=== PATIENT | female | born 1975 | race Caucasian/White ===

== ENCOUNTER 2021-04-08 12:12 | Inpatient (IN) | payer OTHER ==
[2021-04-08 13:37] VITALS: BMI 17.9
[2021-04-08] MEDS ORDERED: METHOCARBAMOL 500 MG TABLET PO PRN (14:36)
[2021-04-08] MEDS ORDERED: ONDANSETRON *ODT* 4 MG TABLET SL PRN (14:36)
[2021-04-08] MEDS ORDERED: LORazepam 1 MG TABLET PO PRN (14:36)
[2021-04-08] MEDS ORDERED: BISMUTH SUBSALICYLATE 524 MG/30 ML PO PRN (14:36)
[2021-04-08] MEDS ORDERED: ACETAMINOPHEN 325 MG TABLET (FP) PO PRN ×2 (14:36)
[2021-04-08] MEDS ORDERED: MENTHOL/PHENOL 1 EACH UD MM PRN (14:36)
[2021-04-08] MEDS ORDERED: NICOTINE 10 MG CARTRIDGE (INHALER) IH PRN (14:36)
[2021-04-08] MEDS ORDERED: MAGNESIUM CITRATE 300 ML BOTTLE PO PRN (14:36)
[2021-04-08] MEDS ORDERED: IBUPROFEN 400 MG TABLET (FP) PO PRN (14:36)
[2021-04-08] MEDS ORDERED: HYDROCORTISONE 1% TOPICAL CREAM 30 GM TUBE TP PRN (14:39)
[2021-04-08] MEDS: COLLOIDAL OATMEAL 1 BAR EACH TP PRN (21:28)
[2021-04-08] MEDS: LORazepam 2 MG TABLET PO SCH (21:28)
[2021-04-08] MEDS: MELATONIN 5 MG TABLETS PO SCH (21:29)
[2021-04-08] MEDS: THIAMINE HCL 100 MG TABLET (FP) PO SCH (21:29)
[2021-04-08] MEDS: hydrOXYzine PAMOATE 25 MG CAPSULE (FP) PO SCH ×2 (21:32→22:46)
[2021-04-08] MEDS: NICOTINE 21 MG/24 HOURS TOPICAL PATCH TD SCH (21:33)
[2021-04-09] MEDS: LORazepam 2 MG TABLET PO SCH ×5 (01:04→22:19)
[2021-04-09] MEDS: hydrOXYzine PAMOATE 25 MG CAPSULE (FP) PO SCH ×5 (07:04→22:19)
[2021-04-09] MEDS: MAGNESIUM HYDROX 2400MG/30ML ORAL SUSPENSION 30 ML CUP PO PRN (07:07)
[2021-04-09] MEDS: COLLOIDAL OATMEAL 1 BAR EACH TP PRN (07:08)
[2021-04-09] MEDS: PRENATAL VITAMINS W/ FOLIC ACID TABLET (FP) PO SCH (10:23)
[2021-04-09] MEDS: NICOTINE 21 MG/24 HOURS TOPICAL PATCH TD SCH (10:24)
[2021-04-09] MEDS ORDERED: cloNIDine HCL 0.1 MG TABLET PO PRN (16:47)
[2021-04-09] MEDS: MAG HYDROX/AL HYDROX/SIMETH 30 ML UNIT-DOSE CUP PO PRN (18:21)
[2021-04-09] MEDS: MELATONIN 5 MG TABLETS PO SCH (22:18)
[2021-04-09] MEDS: THIAMINE HCL 100 MG TABLET (FP) PO SCH (22:19)
[2021-04-10] LABS: EPI CELLS >36 /uL (0-25.1); HYALINE CASTS 1 /uL (0-3.1); URINE APPEARANCE CLEAR; URINE BACTERIA 677 /uL (0-1359); URINE BILIRUBIN NEGATIVE (NEGATIVE); URINE COLOR YELLOW; URINE GLUCOSE (UA) NEGATIVE (NEGATIVE); URINE KETONE NEGATIVE (NEGATIVE); URINE LEUK ESTERASE 1+ (NEGATIVE); URINE NITRITE NEGATIVE (NEGATIVE); URINE PROTEIN NEGATIVE (NEGATIVE); URINE UROBILINOGEN 0.2 mg/dL (0.2-1.0); URINE WBC 40 /uL (0-25.8)
[2021-04-10] MEDS: LORazepam 1 MG TABLET PO SCH ×4 (06:25→22:08)
[2021-04-10] MEDS: hydrOXYzine PAMOATE 25 MG CAPSULE (FP) PO SCH ×5 (06:26→22:08)
[2021-04-10] MEDS: MAGNESIUM HYDROX 2400MG/30ML ORAL SUSPENSION 30 ML CUP PO PRN ×2 (06:27→17:40)
[2021-04-10] MEDS: NICOTINE 21 MG/24 HOURS TOPICAL PATCH TD SCH (10:11)
[2021-04-10] MEDS: PRENATAL VITAMINS W/ FOLIC ACID TABLET (FP) PO SCH (10:12)
[2021-04-10 10:43] LABS: HEMATOCRIT 29.5 % (32.4-45.2); HEMOGLOBIN 8.8 GM/dL (10.7-15.3); MCHC 29.7 g/dl (32.0-36.0); MEAN PLT VOLUME 7.3 fl (7.5-11.1); PLATELET COUNT 633 10^3/uL (134-434); RBC 4.53 M/mm3 (3.60-5.2); RDW 20.8 % (11.6-15.6)
[2021-04-10 10:52] LABS: ALBUMIN 3.2 g/dl (3.4-5.0); BLOOD UREA NITROGEN 15.9 mg/dL (7-18); CALCIUM 8.5 mg/dL (8.5-10.1)
[2021-04-10 10:55] LABS: MCH 19.3 pg (25.7-33.7)
[2021-04-10 10:56] LABS: CREATININE 0.6 mg/dL (0.55-1.3)
[2021-04-10 10:57] LABS: TOT PROT 7.2 g/dl (6.4-8.2)
[2021-04-10 10:58] LABS: BILIRUBIN,TOTAL 0.4 mg/dL (0.2-1)
[2021-04-10] MEDS: NICOTINE POLACRILEX 2 MG GUM BUC PRN (18:45)
[2021-04-10] MEDS: THIAMINE HCL 100 MG TABLET (FP) PO SCH (22:08)
[2021-04-10] MEDS: MELATONIN 5 MG TABLETS PO SCH (22:08)
[2021-04-11] MEDS ORDERED: LORazepam 0.5 MG TABLET PO PRN
[2021-04-11] MEDS: LORazepam 0.5 MG TABLET PO SCH ×3 (06:40→17:32)
[2021-04-11] MEDS: hydrOXYzine PAMOATE 25 MG CAPSULE (FP) PO SCH ×4 (06:41→17:32)
[2021-04-11] MEDS: PRENATAL VITAMINS W/ FOLIC ACID TABLET (FP) PO SCH (10:10)
[2021-04-11] MEDS: NICOTINE 21 MG/24 HOURS TOPICAL PATCH TD SCH ×2 (10:13→10:54)
[2021-04-11] MEDS: NICOTINE POLACRILEX 2 MG GUM BUC PRN (10:13)
[2021-04-11] MEDS ORDERED: BISACODYL 5 MG TABLET.DR (FP) PO PRN (10:26)
[2021-04-11] MEDS ORDERED: traZODone HCL 50 MG TABLET (FP) PO PRN (10:30)
[2021-04-11 17:30] VITALS: BP 120/75; PULSE 94; TEMP 97.6
[2021-04-11] MEDS: MAG HYDROX/AL HYDROX/SIMETH 30 ML UNIT-DOSE CUP PO PRN (17:34)
[2021-04-12] MEDS ORDERED: LORazepam 0.5 MG TABLET PO ONE (05:00)
== END 2021-04-11 19:44 | disposition other institution (70) | DRG 897 ==
LOC: YASAS 12:12 → Y3N 16:53
PROVIDERS: ADMIT Allergy & Immunology; ATTEND Allergy & Immunology
PROC: HZ2ZZZZ Detoxification Services for Substance Abuse Treatment (ICD-10-PCS; principal; 2021-04-08)
DX: F10.230 Alcohol dependence with withdrawal, uncomplicated (principal); F14.20 Cocaine dependence, uncomplicated; F16.20 Hallucinogen dependence, uncomplicated; F12.20 Cannabis dependence, uncomplicated; F17.210 Nicotine dependence, cigarettes, uncomplicated; F31.9 Bipolar disorder, unspecified; F20.9 Schizophrenia, unspecified; F19.24 Other psychoactive substance dependence with psychoactive substance-induced mood disorder; F41.9 Anxiety disorder, unspecified; D64.9 Anemia, unspecified; K59.00 Constipation, unspecified; R03.0 Elevated blood-pressure reading, without diagnosis of hypertension; L40.9 Psoriasis, unspecified; M06.9 Rheumatoid arthritis, unspecified; S09.92XA Unspecified injury of nose, initial encounter; W22.8XXA Striking against or struck by other objects, initial encounter; Y92.89 Other specified places as the place of occurrence of the external cause; Z98.84 Bariatric surgery status; Z59.0 Homelessness
CPT/HCPCS: 36415; 80053; 81003; 81025; 85027; 86780; 93005; 93010; C9803; U0003; U0005

== ENCOUNTER 2021-04-11 19:44 | Inpatient (IN) | payer OTHER ==
[2021-04-11] MEDS ORDERED: P-EPHED 60MG/TRIPROLIDI 2.5MG TABLET PO PRN (20:33)
[2021-04-11] MEDS ORDERED: ACETAMINOPHEN 325 MG TABLET (FP) PO PRN (20:33)
[2021-04-11] MEDS ORDERED: guaiFENesin 200 MG/10 ML 10 ML UNIT-DOSE CUPS PO PRN (20:33)
[2021-04-11] MEDS ORDERED: MAGNESIUM CITRATE 300 ML BOTTLE PO PRN (20:33)
[2021-04-11] MEDS ORDERED: LOPERAMIDE HCL 2 MG CAPSULE PO PRN (20:33)
[2021-04-11] MEDS ORDERED: MAG HYDROX/AL HYDROX/SIMETH 30 ML UNIT-DOSE CUP PO PRN (20:33)
[2021-04-11] MEDS ORDERED: MENTHOL/PHENOL 1 EACH UD MM PRN (20:33)
[2021-04-11] MEDS: THIAMINE HCL 100 MG TABLET (FP) PO SCH (21:55)
[2021-04-11] MEDS ORDERED: MELATONIN 5 MG TABLETS PO SCH (22:00)
[2021-04-12] MEDS: NICOTINE 10 MG CARTRIDGE (INHALER) IH SCH (10:30)
[2021-04-12] MEDS: NICOTINE 14 MG/24 HOURS TOPICAL PATCH TD SCH (10:30)
[2021-04-12] MEDS: hydrOXYzine PAMOATE 50 MG CAPSULE (FP) PO PRN ×2 (10:30→20:04)
[2021-04-12] MEDS: PRENATAL VITAMINS W/ FOLIC ACID TABLET (FP) PO SCH (10:30)
[2021-04-12] MEDS: THIAMINE HCL 100 MG TABLET (FP) PO SCH (21:49)
[2021-04-12] MEDS: MAGNESIUM HYDROX 2400MG/30ML ORAL SUSPENSION 30 ML CUP PO PRN (21:50)
[2021-04-12] MEDS: SUVOREXANT 10 MG TABLET PO PRN (21:51)
[2021-04-13] MEDS: IBUPROFEN 400 MG TABLET (FP) PO PRN ×2 (06:16→18:04)
[2021-04-13] MEDS: hydrOXYzine PAMOATE 50 MG CAPSULE (FP) PO PRN ×4 (06:17→18:04)
[2021-04-13] MEDS: PRENATAL VITAMINS W/ FOLIC ACID TABLET (FP) PO SCH (10:37)
[2021-04-13] MEDS: NICOTINE 14 MG/24 HOURS TOPICAL PATCH TD SCH (10:37)
[2021-04-13] MEDS: NICOTINE 10 MG CARTRIDGE (INHALER) IH SCH (10:38)
[2021-04-13] MEDS: MAGNESIUM HYDROX 2400MG/30ML ORAL SUSPENSION 30 ML CUP PO PRN (16:13)
[2021-04-13] MEDS: NICOTINE POLACRILEX 2 MG GUM BUC PRN (16:13)
[2021-04-13] MEDS: THIAMINE HCL 100 MG TABLET (FP) PO SCH (21:43)
[2021-04-13] MEDS: SUVOREXANT 10 MG TABLET PO PRN (21:45)
[2021-04-14] MEDS: hydrOXYzine PAMOATE 50 MG CAPSULE (FP) PO PRN ×3 (06:09→19:04)
[2021-04-14] MEDS: IBUPROFEN 400 MG TABLET (FP) PO PRN (06:09)
[2021-04-14] MEDS: NICOTINE 10 MG CARTRIDGE (INHALER) IH SCH (10:05)
[2021-04-14] MEDS: NICOTINE 14 MG/24 HOURS TOPICAL PATCH TD SCH (10:05)
[2021-04-14] MEDS: PRENATAL VITAMINS W/ FOLIC ACID TABLET (FP) PO SCH (10:05)
[2021-04-14] MEDS: NICOTINE POLACRILEX 2 MG GUM BUC PRN ×2 (10:06→19:04)
[2021-04-14] MEDS: THIAMINE HCL 100 MG TABLET (FP) PO SCH (21:20)
[2021-04-14] MEDS: SUVOREXANT 10 MG TABLET PO PRN (21:20)
[2021-04-15] MEDS: hydrOXYzine PAMOATE 50 MG CAPSULE (FP) PO PRN ×3 (00:57→10:26)
[2021-04-15] MEDS: NICOTINE POLACRILEX 2 MG GUM BUC PRN ×2 (06:08→10:29)
[2021-04-15] MEDS: IBUPROFEN 400 MG TABLET (FP) PO PRN (06:08)
[2021-04-15 07:06] VITALS: BP 126/83; PULSE 80; TEMP 97.8
[2021-04-15] MEDS: NICOTINE 10 MG CARTRIDGE (INHALER) IH SCH (10:26)
[2021-04-15] MEDS: NICOTINE 14 MG/24 HOURS TOPICAL PATCH TD SCH (10:26)
[2021-04-15] MEDS: PRENATAL VITAMINS W/ FOLIC ACID TABLET (FP) PO SCH (10:26)
[2021-04-15] MEDS ORDERED: LIDOCAINE 5% TOPICAL PATCH TP SCH (12:45)
[2021-04-15] MEDS ORDERED: LIDOCAINE PATCH REMOVAL MC SCH (22:00)
== END 2021-04-15 14:25 | disposition home or self-care (01) | DRG 895 ==
LOC: YASAS 19:44 → Y5N 19:46
PROVIDERS: ADMIT Allergy & Immunology; ATTEND Allergy & Immunology
PROC: HZ42ZZZ Group Counseling for Substance Abuse Treatment, Cognitive-Behavioral (ICD-10-PCS; principal; 2021-04-11)
DX: F10.20 Alcohol dependence, uncomplicated (principal); F14.20 Cocaine dependence, uncomplicated; F16.20 Hallucinogen dependence, uncomplicated; F19.280 Other psychoactive substance dependence with psychoactive substance-induced anxiety disorder; F19.282 Other psychoactive substance dependence with psychoactive substance-induced sleep disorder; F17.210 Nicotine dependence, cigarettes, uncomplicated; F31.9 Bipolar disorder, unspecified; L40.9 Psoriasis, unspecified; M06.9 Rheumatoid arthritis, unspecified; M54.50 Low back pain, unspecified; G89.29 Other chronic pain

== ENCOUNTER 2022-04-08 09:20 | Inpatient (IN) | payer OTHER ==
[2022-04-08 09:58] VITALS: BMI 18.8
[2022-04-08] MEDS ORDERED: LORazepam 1 MG TABLET PO PRN (10:43)
[2022-04-08] MEDS ORDERED: ACETAMINOPHEN 325 MG TABLET (FP) PO PRN ×2 (10:43)
[2022-04-08] MEDS ORDERED: IBUPROFEN 600 MG TABLET (FP) PO PRN (10:43)
[2022-04-08] MEDS ORDERED: IBUPROFEN 400 MG TABLET (FP) PO PRN (10:43)
[2022-04-08] MEDS ORDERED: BISMUTH SUBSALICYLATE 524 MG/30 ML PO PRN (10:43)
[2022-04-08] MEDS ORDERED: LOPERAMIDE HCL 2 MG CAPSULE PO PRN (10:43)
[2022-04-08] MEDS ORDERED: MAGNESIUM CITRATE 300 ML BOTTLE PO PRN (10:43)
[2022-04-08] MEDS ORDERED: ONDANSETRON *ODT* 4 MG TABLET SL PRN (10:43)
[2022-04-08] MEDS ORDERED: BENZOCAINE/MENTHOL (CHLORASEPTIC ) LOZENGE MM PRN (10:43)
[2022-04-08] MEDS ORDERED: DICYCLOMINE HCL 10 MG CAPSULE PO PRN (10:43)
[2022-04-08] MEDS ORDERED: NALOXONE HCL (KLOXXADO) 8 MG SPRAY NS PRN (10:43)
[2022-04-08] MEDS ORDERED: MAG HYDROX/AL HYDROX/SIMETH 30 ML UNIT-DOSE CUP PO PRN (10:43)
[2022-04-08] MEDS ORDERED: MAGNESIUM HYDROX 2400MG/30ML ORAL SUSPENSION 30 ML CUP PO PRN (10:43)
[2022-04-08] MEDS: METHOCARBAMOL 500 MG TABLET PO PRN ×2 (11:45→18:11)
[2022-04-08] MEDS: LORazepam 2 MG TABLET PO SCH ×3 (11:46→22:52)
[2022-04-08] MEDS: hydrOXYzine PAMOATE 25 MG CAPSULE (FP) PO SCH ×3 (14:06→22:55)
[2022-04-08] MEDS: FLUOCINONIDE 0.05% CREAM (60 GM TUBE) TP SCH ×2 (14:40→22:55)
[2022-04-08] MEDS: NICOTINE 10 MG CARTRIDGE (INHALER) IH PRN (18:11)
[2022-04-08] MEDS: MELATONIN 5 MG TABLETS PO SCH (22:52)
[2022-04-08] MEDS: THIAMINE HCL 100 MG TABLET (FP) PO SCH (22:52)
[2022-04-09] MEDS: LORazepam 2 MG TABLET PO SCH ×4 (06:17→23:28)
[2022-04-09] MEDS: hydrOXYzine PAMOATE 25 MG CAPSULE (FP) PO SCH ×5 (06:17→23:27)
[2022-04-09 09:30] VITALS: RESP 18
[2022-04-09] MEDS ORDERED: PRENATAL VITAMINS W/ FOLIC ACID TABLET (FP) PO SCH (10:00)
[2022-04-09] MEDS: FLUOCINONIDE 0.05% CREAM (60 GM TUBE) TP SCH ×2 (10:37→23:27)
[2022-04-09] MEDS: NICOTINE 10 MG CARTRIDGE (INHALER) IH PRN (10:39)
[2022-04-09 11:16] LABS: HEMATOCRIT 22.7 % (32.4-45.2); MCHC 28.8 g/dl (32.0-36.0); MEAN PLT VOLUME 7.4 fl (7.5-11.1); PLATELET COUNT 467 10^3/uL (134-434); RBC 3.78 M/mm3 (3.60-5.2); RDW 20.2 % (11.6-15.6); WHITE BLOOD COUNT 7.4 K/mm3 (4.0-10.0)
[2022-04-09 11:19] LABS: CALCIUM 8.1 mg/dL (8.5-10.1)
[2022-04-09 11:20] LABS: ALBUMIN 2.8 g/dl (3.4-5.0); BLOOD UREA NITROGEN 11.9 mg/dL (7-18)
[2022-04-09 11:23] LABS: CREATININE 0.5 mg/dL (0.55-1.3); MCH 17.3 pg (25.7-33.7)
[2022-04-09 11:24] LABS: BILIRUBIN,TOTAL 0.4 mg/dL (0.2-1)
[2022-04-09 11:25] LABS: HEMOGLOBIN 6.5 GM/dL (10.7-15.3); TOT PROT 6.4 g/dl (6.4-8.2)
[2022-04-09 12:19] LABS: HIV INTERPRETATION NEGATIVE (NEGATIVE)
[2022-04-09 13:50] VITALS: BP 129/82; PULSE 92; TEMP 96.9
[2022-04-09] MEDS: THIAMINE HCL 100 MG TABLET (FP) PO SCH (23:27)
[2022-04-09] MEDS: MELATONIN 5 MG TABLETS PO SCH (23:27)
[2022-04-10] MEDS ORDERED: LORazepam 1 MG TABLET PO SCH (05:00)
[2022-04-11] MEDS ORDERED: LORazepam 0.5 MG TABLET PO PRN
[2022-04-11] MEDS ORDERED: LORazepam 0.5 MG TABLET PO SCH (05:00)
[2022-04-12] MEDS ORDERED: LORazepam 0.5 MG TABLET PO ONE (05:00)
== END 2022-04-09 16:00 | disposition short-term general hospital (02) | DRG 897 ==
LOC: YASAS 09:20 → Y6N 10:53
PROVIDERS: ADMIT Allergy & Immunology; ATTEND Surgery
PROC: HZ2ZZZZ Detoxification Services for Substance Abuse Treatment (ICD-10-PCS; principal; 2022-04-08)
DX: F10.230 Alcohol dependence with withdrawal, uncomplicated (principal); F14.20 Cocaine dependence, uncomplicated; Z68.1 Body mass index [BMI] 19.9 or less, adult; F12.20 Cannabis dependence, uncomplicated; F17.210 Nicotine dependence, cigarettes, uncomplicated; F31.9 Bipolar disorder, unspecified; F20.9 Schizophrenia, unspecified; D64.9 Anemia, unspecified; R63.4 Abnormal weight loss; Z59.00 Homelessness unspecified; Z28.310 Unvaccinated for COVID-19; N28.9 Disorder of kidney and ureter, unspecified
CPT/HCPCS: 36415; 80053; 81025; 85027; 86780; 87389; 87811; C9803-CS; U0003; U0005

== ENCOUNTER 2022-04-09 12:52 | Observation (INO) | payer OTHER ==
[2022-04-09 13:02] VITALS: BMI 18.8
[2022-04-09 15:11] LABS: PROTHROMBIN TIME (PATIENT) 11.5 SEC (9.7-13.0)
[2022-04-09 15:13] LABS: ACTIVATED PTT 30.2 SECONDS (25.2-36.5)
[2022-04-09] MEDS ORDERED: ACETAMINOPHEN 1000 MG/100 ML BAG IVPB ONE (15:28)
[2022-04-09] MEDS ORDERED: LORazepam 2 MG/ML SDV VIAL IVPUSH PRN (16:11)
[2022-04-09] MEDS ORDERED: MAG HYDROX/AL HYDROX/SIMETH 30 ML UNIT-DOSE CUP PO PRN (16:11)
[2022-04-09] MEDS ORDERED: ACETAMINOPHEN 1000 MG/100 ML BAG IVPB PRN ×2 (16:11→16:15)
[2022-04-09] MEDS ORDERED: PANTOPRAZOLE SODIUM 40 MG VIAL IVPUSH SCH (16:15)
[2022-04-09] MEDS ORDERED: ACETAMINOPHEN INJECTION 100 ML IVPB ONE (16:19)
[2022-04-09] MEDS ORDERED: PANTOPRAZOLE SODIUM 40 MG/100 ML BAG IVPB ONE (16:58)
[2022-04-10 07:30] LABS: CALCIUM 8.5 mg/dL (8.5-10.1)
[2022-04-10 07:31] LABS: BLOOD UREA NITROGEN 15.1 mg/dL (7-18)
[2022-04-10 07:34] LABS: CREATININE 0.6 mg/dL (0.55-1.3); PHOSPHOROUS 3.8 mg/dL (2.5-4.9)
[2022-04-10 07:36] LABS: HEMATOCRIT 26.3 % (32.4-45.2); HEMOGLOBIN 7.9 GM/dL (10.7-15.3); MEAN CELL VOLUME 61.3 fl (80-96); MEAN PLT VOLUME 8.3 fl (7.5-11.1); PLATELET COUNT 481 10^3/uL (134-434); WHITE BLOOD COUNT 9.4 K/mm3 (4.0-10.0)
[2022-04-10 08:05] LABS: MCH 18.4 pg (25.7-33.7)
[2022-04-10] MEDS ORDERED: CYANOCOBALAMIN (VITAMIN B-12) 1000 MCG/1 ML VIAL IM ONE (08:58)
[2022-04-10 09:38] LABS: ANISOCYTOSIS 3+; MACROCYTOSIS 0; OVALOCYTE 1+
[2022-04-10] MEDS ORDERED: PANTOPRAZOLE SODIUM 40 MG VIAL IVPUSH SCH (10:00)
[2022-04-10] MEDS ORDERED: FERROUS SO4 325 MG TABLET (FP) ONE (10:05)
[2022-04-10] MEDS: DEXTROSE 5%-0.45% SALINE 1,000 ML IV SCH (10:05)
[2022-04-10] MEDS ORDERED: NICOTINE 21 MG/24 HOURS TOPICAL PATCH ONE (10:05)
[2022-04-10] MEDS ORDERED: PANTOPRAZOLE SODIUM 40 MG/100 ML BAG IVPB ONE (10:06)
[2022-04-10] MEDS: FERROUS SO4 325 MG TABLET (FP) PO SCH (10:21)
[2022-04-10] MEDS: NICOTINE 21 MG/24 HOURS TOPICAL PATCH TD SCH (10:21)
[2022-04-10 10:35] LABS: ALBUMIN 3.1 g/dl (3.4-5.0)
[2022-04-10 10:38] LABS: BILIRUBIN,DIRECT 0.2 mg/dL (0.0-0.2)
[2022-04-10 10:40] LABS: BILIRUBIN,TOTAL 0.8 mg/dL (0.2-1); TOT PROT 6.7 g/dl (6.4-8.2)
[2022-04-10] MEDS: MAG HYDROX/AL HYDROX/SIMETH 30 ML UNIT-DOSE CUP PO SCH ×2 (17:50→18:15)
[2022-04-10] MEDS: PANTOPRAZOLE SODIUM 160 MG in SODIUM CHLORIDE 290 ML IVPB SCH ×2 (17:50→20:59)
[2022-04-10] MEDS: LACTATED RINGERS SOLUTION 1,000 ML/1,000 ML INFUS.BAG IV SCH (17:57)
[2022-04-11] MEDS: MAG HYDROX/AL HYDROX/SIMETH 30 ML UNIT-DOSE CUP PO SCH ×4 (00:30→17:30)
[2022-04-11] MEDS: DEXTROSE 5%-0.45% SALINE 1,000 ML IV SCH ×2 (06:19→09:12)
[2022-04-11 08:23] LABS: BASO % 1.1 % (0-2.0); EOS % 2.5 % (0-4.5); HEMATOCRIT 27.8 % (32.4-45.2); HEMOGLOBIN 8.3 GM/dL (10.7-15.3); LYMPH % 24.2 % (8-40); MCHC 29.8 g/dl (32.0-36.0); MEAN CELL VOLUME 61.4 fl (80-96); MEAN PLT VOLUME 6.9 fl (7.5-11.1); MONO % 7.6 % (3.8-10.2); NEUT % 64.6 % (42.8-82.8); PLATELET COUNT 511 10^3/uL (134-434); RBC 4.54 M/mm3 (3.60-5.2); RDW 22.6 % (11.6-15.6); WHITE BLOOD COUNT 6.4 K/mm3 (4.0-10.0)
[2022-04-11 08:25] LABS: MCH 18.3 pg (25.7-33.7)
[2022-04-11 08:56] LABS: ALBUMIN 3.1 g/dl (3.4-5.0); BLOOD UREA NITROGEN 7.5 mg/dL (7-18)
[2022-04-11 08:59] LABS: CREATININE 0.5 mg/dL (0.55-1.3)
[2022-04-11 09:01] LABS: BILIRUBIN,DIRECT 0.1 mg/dL (0.0-0.2); BILIRUBIN,TOTAL 0.4 mg/dL (0.2-1)
[2022-04-11] MEDS: FERROUS SO4 325 MG TABLET (FP) PO SCH (09:11)
[2022-04-11] MEDS: NICOTINE 21 MG/24 HOURS TOPICAL PATCH TD SCH (09:11)
[2022-04-11] MEDS: CYANOCOBALAMIN 1,000 MCG TABLET (FP) PO SCH (09:12)
[2022-04-11 09:15] LABS: ANISOCYTOSIS 3+; MACROCYTOSIS 0; OVALOCYTE 2+
[2022-04-11] MEDS: PANTOPRAZOLE SODIUM 160 MG in SODIUM CHLORIDE 290 ML IVPB SCH (10:44)
[2022-04-11] MEDS ORDERED: IRON SUCROSE INJECTION 200 MG in SODIUM CHLORIDE 90 ML IVPB ONE (11:00)
[2022-04-11] MEDS: busPIRone HCL 10 MG TABLET (FP) PO SCH (22:12)
[2022-04-12] MEDS: MAG HYDROX/AL HYDROX/SIMETH 30 ML UNIT-DOSE CUP PO SCH ×4 (00:22→18:34)
[2022-04-12] MEDS: DEXTROSE 5%-0.45% SALINE 1,000 ML IV SCH (03:00)
[2022-04-12] MEDS: PANTOPRAZOLE SODIUM 160 MG in SODIUM CHLORIDE 290 ML IVPB SCH (05:47)
[2022-04-12] MEDS ORDERED: PANTOPRAZOLE 40 MG TABLET PO SCH (10:00)
[2022-04-12] MEDS: CYANOCOBALAMIN 1,000 MCG TABLET (FP) PO SCH (10:24)
[2022-04-12] MEDS: busPIRone HCL 10 MG TABLET (FP) PO SCH ×2 (10:24→22:03)
[2022-04-12] MEDS: NICOTINE 21 MG/24 HOURS TOPICAL PATCH TD SCH (10:25)
[2022-04-12 10:34] LABS: BASO % 2.8 % (0-2.0); EOS % 3.6 % (0-4.5); HEMATOCRIT 27.5 % (32.4-45.2); HEMOGLOBIN 8.1 GM/dL (10.7-15.3); LYMPH % 24.7 % (8-40); MCHC 29.4 g/dl (32.0-36.0); MEAN PLT VOLUME 7.1 fl (7.5-11.1); MONO % 6.7 % (3.8-10.2); NEUT % 62.2 % (42.8-82.8); PLATELET COUNT 489 10^3/uL (134-434); RBC 4.37 M/mm3 (3.60-5.2); RDW 24.1 % (11.6-15.6); WHITE BLOOD COUNT 5.3 K/mm3 (4.0-10.0)
[2022-04-12 10:36] LABS: MCH 18.5 pg (25.7-33.7)
[2022-04-12 11:21] LABS: CHLORIDE 105 mmol/L (98-107); SODIUM 140 mmol/L (136-145)
[2022-04-12 11:23] LABS: CALCIUM 8.9 mg/dL (8.5-10.1)
[2022-04-12 11:24] LABS: ALBUMIN 3.2 g/dl (3.4-5.0); ANION GAP 4 MMOL/L (8-16); CO2 32 mmol/L (21-32); GLUCOSE,RANDOM 117 mg/dL (74-106)
[2022-04-12 11:26] LABS: BILIRUBIN,DIRECT < 0.1 mg/dL (0.0-0.2); SGPT/ALT 22 U/L (13-61)
[2022-04-12 11:27] LABS: CREATININE 0.6 mg/dL (0.55-1.3); SGOT/AST 16 U/L (15-37)
[2022-04-12 11:28] LABS: BILIRUBIN,TOTAL 0.2 mg/dL (0.2-1); TOT PROT 6.8 g/dl (6.4-8.2)
[2022-04-12 11:30] LABS: ALK PHOS 96 U/L (45-117)
[2022-04-12] MEDS ORDERED: PANTOPRAZOLE SODIUM 160 MG in SODIUM CHLORIDE 290 ML IVPB SCH (12:00)
[2022-04-12] MEDS: LACTATED RINGERS SOLUTION 1,000 ML/1,000 ML INFUS.BAG IV SCH (22:02)
[2022-04-13] MEDS: MAG HYDROX/AL HYDROX/SIMETH 30 ML UNIT-DOSE CUP PO SCH ×3 (01:05→11:59)
[2022-04-13 05:26] VITALS: RESP 18
[2022-04-13] MEDS: CYANOCOBALAMIN 1,000 MCG TABLET (FP) PO SCH (09:05)
[2022-04-13] MEDS: busPIRone HCL 10 MG TABLET (FP) PO SCH (09:05)
[2022-04-13] MEDS: NICOTINE 21 MG/24 HOURS TOPICAL PATCH TD SCH (09:05)
[2022-04-13 09:33] LABS: BASO % 2.5 % (0-2.0); EOS % 2.9 % (0-4.5); HEMATOCRIT 27.1 % (32.4-45.2); HEMOGLOBIN 7.8 GM/dL (10.7-15.3); LYMPH % 27.5 % (8-40); MCHC 28.8 g/dl (32.0-36.0); MEAN CELL VOLUME 63.2 fl (80-96); MEAN PLT VOLUME 7.3 fl (7.5-11.1); MONO % 6.6 % (3.8-10.2); NEUT % 60.5 % (42.8-82.8); PLATELET COUNT 479 10^3/uL (134-434); RBC 4.28 M/mm3 (3.60-5.2); RDW 22.8 % (11.6-15.6); WHITE BLOOD COUNT 5.8 K/mm3 (4.0-10.0)
[2022-04-13 09:40] LABS: MCH 18.2 pg (25.7-33.7)
[2022-04-13] MEDS ORDERED: PANTOPRAZOLE 40 MG TABLET PO SCH (10:00)
[2022-04-13 10:02] LABS: BLOOD UREA NITROGEN 17.5 mg/dL (7-18)
[2022-04-13 10:06] LABS: CALCIUM 8.5 mg/dL (8.5-10.1)
[2022-04-13 10:07] LABS: ALBUMIN 2.9 g/dl (3.4-5.0)
[2022-04-13 10:10] LABS: BILIRUBIN,DIRECT 0.1 mg/dL (0.0-0.2); CREATININE 0.5 mg/dL (0.55-1.3)
[2022-04-13 10:12] LABS: BILIRUBIN,TOTAL 0.3 mg/dL (0.2-1); TOT PROT 6.5 g/dl (6.4-8.2)
[2022-04-13 14:09] VITALS: BP 121/70; PULSE 85; TEMP 98
== END 2022-04-13 17:38 | disposition other institution (70) ==
LOC: JER 12:52 → JERBED 14:42 → J6S 04-10 17:05
PROVIDERS: ADMIT Internal Medicine; ATTEND Internal Medicine
PROC: 3E033NZ Introduction of Analgesics, Hypnotics, Sedatives into Peripheral Vein, Percutaneous Approach (ICD-10-PCS; principal; 2022-04-09)
PROC: 3E033GC Introduction of Other Therapeutic Substance into Peripheral Vein, Percutaneous Approach (ICD-10-PCS; 2022-04-09)
DX: K27.9 Peptic ulcer, site unspecified, unspecified as acute or chronic, without hemorrhage or perforation (principal); K21.9 Gastro-esophageal reflux disease without esophagitis; R10.9 Unspecified abdominal pain; D50.9 Iron deficiency anemia, unspecified; Z29.8 Encounter for other specified prophylactic measures; L40.9 Psoriasis, unspecified; F19.10 Other psychoactive substance abuse, uncomplicated; Z98.84 Bariatric surgery status; D25.9 Leiomyoma of uterus, unspecified; M06.9 Rheumatoid arthritis, unspecified; F17.210 Nicotine dependence, cigarettes, uncomplicated
CPT/HCPCS: 36415; 36430; 74174-TC; 74181-TC; 76856-TC; 80048; 80076; 82272; 82378; 82607; 82728; 82746; 82941; 83540; 83550; 83735; 84100; 84703; 85025; 85027; 85045; 85610; 85730; 86140; 86704; 86803; 86850; 86900; 86901; 86922; 87340; 87517; 88305-TC; 88312-TC; 88342-TC; 96365; 96366; 96375; 97116-GP; 97162-GP; 99285-25; G0378; J1756; P9058

== ENCOUNTER 2022-04-13 18:08 | Inpatient (IN) | payer OTHER ==
[2022-04-13] MEDS ORDERED: IBUPROFEN 400 MG TABLET (FP) PO PRN (19:25)
[2022-04-13] MEDS ORDERED: MAG HYDROX/AL HYDROX/SIMETH 30 ML UNIT-DOSE CUP PO PRN (19:25)
[2022-04-13] MEDS ORDERED: LOPERAMIDE HCL 2 MG CAPSULE PO PRN (19:25)
[2022-04-13] MEDS ORDERED: P-EPHED 60MG/TRIPROLIDI 2.5MG TABLET PO PRN (19:25)
[2022-04-13] MEDS ORDERED: MAGNESIUM CITRATE 300 ML BOTTLE PO PRN (19:25)
[2022-04-13] MEDS ORDERED: MAGNESIUM HYDROX 2400MG/30ML ORAL SUSPENSION 30 ML CUP PO PRN (19:25)
[2022-04-13] MEDS ORDERED: ACETAMINOPHEN 325 MG TABLET (FP) PO PRN (19:25)
[2022-04-13] MEDS ORDERED: guaiFENesin 200 MG/10 ML 10 ML UNIT-DOSE CUPS PO PRN (19:25)
[2022-04-13] MEDS ORDERED: PATIENT'S OWN MEDICATION (NON-FORMULARY) (Multivitamin [Multiple Vitamins] 1 EACH Tablet) PO SCH (19:30)
[2022-04-13] MEDS ORDERED: NICOTINE 7 MG/24 HOURS TOPICAL PATCH TD SCH (19:30)
[2022-04-13] MEDS ORDERED: MELATONIN 5 MG TABLETS PO SCH (22:00)
[2022-04-13 23:05] VITALS: BMI 17.9
[2022-04-14] MEDS: NICOTINE 21 MG/24 HOURS TOPICAL PATCH TD SCH ×2 (00:20→09:55)
[2022-04-14] MEDS: PRENATAL VITAMINS W/ FOLIC ACID TABLET (FP) PO SCH ×2 (00:20→09:54)
[2022-04-14] MEDS: FERROUS SO4 325 MG TABLET (FP) PO SCH ×2 (00:20→09:55)
[2022-04-14] MEDS: CYANOCOBALAMIN 1,000 MCG TABLET (FP) PO SCH ×2 (00:21→09:55)
[2022-04-14] MEDS: hydrOXYzine PAMOATE 25 MG CAPSULE (FP) PO SCH ×6 (00:21→21:18)
[2022-04-14] MEDS: THIAMINE HCL 100 MG TABLET (FP) PO SCH ×2 (00:21→21:17)
[2022-04-14] MEDS: PANTOPRAZOLE 40 MG TABLET PO SCH ×3 (00:36→21:18)
[2022-04-14] MEDS: MAG HYDROX/AL HYDROX/SIMETH 30 ML UNIT-DOSE CUP PO SCH ×4 (00:55→17:29)
[2022-04-14] MEDS: NICOTINE 10 MG CARTRIDGE (INHALER) IH PRN (06:08)
[2022-04-14] MEDS: NICOTINE POLACRILEX 4 MG GUM BUC PRN ×2 (09:58→21:19)
[2022-04-14 11:21] LABS: EPI CELLS >36 /uL (0-25.1); HYALINE CASTS 3 /uL (0-3.1); PH,URINE 6.5 (5.0-8.0); URINE APPEARANCE CLEAR; URINE BACTERIA 538 /uL (0-1359); URINE BILIRUBIN NEGATIVE (NEGATIVE); URINE COLOR YELLOW; URINE GLUCOSE (UA) NEGATIVE (NEGATIVE); URINE KETONE NEGATIVE (NEGATIVE); URINE LEUK ESTERASE 3+ (NEGATIVE); URINE NITRITE NEGATIVE (NEGATIVE); URINE PROTEIN NEGATIVE (NEGATIVE); URINE RBC 6 /uL (0-23.9); URINE UROBILINOGEN 0.2 mg/dL (0.2-1.0); URINE WBC 301 /uL (0-25.8)
[2022-04-14 12:26] LABS: HIV INTERPRETATION NEGATIVE (NEGATIVE)
[2022-04-14 18:20] LABS: SYPHILIS W/ RPR CONF NON-REACTIVE (NONREACTIVE)
[2022-04-14] MEDS: SUVOREXANT 5 MG TABLET PO PRN (21:19)
[2022-04-15] MEDS: MAG HYDROX/AL HYDROX/SIMETH 30 ML UNIT-DOSE CUP PO SCH ×4 (00:54→17:41)
[2022-04-15] MEDS ORDERED: TUBERCULIN PPD 5 TU/0.1ML VIAL ID ONE (03:27)
[2022-04-15] MEDS: hydrOXYzine PAMOATE 25 MG CAPSULE (FP) PO SCH ×5 (07:13→21:09)
[2022-04-15] MEDS: FERROUS SO4 325 MG TABLET (FP) PO SCH (09:28)
[2022-04-15] MEDS: PRENATAL VITAMINS W/ FOLIC ACID TABLET (FP) PO SCH (09:28)
[2022-04-15] MEDS: PANTOPRAZOLE 40 MG TABLET PO SCH ×2 (09:28→21:09)
[2022-04-15] MEDS: CYANOCOBALAMIN 1,000 MCG TABLET (FP) PO SCH (09:28)
[2022-04-15] MEDS: NICOTINE 21 MG/24 HOURS TOPICAL PATCH TD SCH (09:29)
[2022-04-15] MEDS: NICOTINE POLACRILEX 4 MG GUM BUC PRN ×2 (13:23→21:10)
[2022-04-15] MEDS: THIAMINE HCL 100 MG TABLET (FP) PO SCH (21:09)
[2022-04-15] MEDS: NICOTINE 10 MG CARTRIDGE (INHALER) IH PRN (22:22)
[2022-04-16] MEDS: MAG HYDROX/AL HYDROX/SIMETH 30 ML UNIT-DOSE CUP PO SCH ×2 (00:48→05:50)
[2022-04-16] MEDS: hydrOXYzine PAMOATE 25 MG CAPSULE (FP) PO SCH ×2 (05:50→10:16)
[2022-04-16] MEDS: PRENATAL VITAMINS W/ FOLIC ACID TABLET (FP) PO SCH (10:14)
[2022-04-16] MEDS: FERROUS SO4 325 MG TABLET (FP) PO SCH (10:14)
[2022-04-16] MEDS: PANTOPRAZOLE 40 MG TABLET PO SCH ×2 (10:14→21:13)
[2022-04-16] MEDS: CYANOCOBALAMIN 1,000 MCG TABLET (FP) PO SCH (10:14)
[2022-04-16] MEDS: NICOTINE 21 MG/24 HOURS TOPICAL PATCH TD SCH (10:15)
[2022-04-16 10:17] LABS: HEMATOCRIT 27.8 % (32.4-45.2); HEMOGLOBIN 8.2 GM/dL (10.7-15.3); MCHC 29.4 g/dl (32.0-36.0); MEAN PLT VOLUME 8.8 fl (7.5-11.1); PLATELET COUNT 413 10^3/uL (134-434); RBC 4.28 M/mm3 (3.60-5.2); RDW 25.9 % (11.6-15.6); WHITE BLOOD COUNT 5.9 K/mm3 (4.0-10.0)
[2022-04-16 10:19] LABS: MCH 19.1 pg (25.7-33.7)
[2022-04-16 10:39] LABS: ALBUMIN 3.2 g/dl (3.4-5.0); BLOOD UREA NITROGEN 26.2 mg/dL (7-18); CALCIUM 8.7 mg/dL (8.5-10.1)
[2022-04-16 10:42] LABS: CREATININE 0.5 mg/dL (0.55-1.3)
[2022-04-16 10:45] LABS: BILIRUBIN,TOTAL 0.2 mg/dL (0.2-1); TOT PROT 6.8 g/dl (6.4-8.2)
[2022-04-16] MEDS ORDERED: MAG HYDROX/AL HYDROX/SIMETH -MYLANTA- ORAL SUSPENSION PO PRN (11:35)
[2022-04-16] MEDS: THIAMINE HCL 100 MG TABLET (FP) PO SCH (21:13)
[2022-04-16] MEDS: hydrOXYzine PAMOATE 25 MG CAPSULE (FP) PO PRN (21:13)
[2022-04-16] MEDS: SUVOREXANT 5 MG TABLET PO PRN (21:13)
[2022-04-17] MEDS: PANTOPRAZOLE 40 MG TABLET PO SCH ×2 (10:45→21:14)
[2022-04-17] MEDS: FERROUS SO4 325 MG TABLET (FP) PO SCH (10:45)
[2022-04-17] MEDS: NICOTINE 21 MG/24 HOURS TOPICAL PATCH TD SCH (10:45)
[2022-04-17] MEDS: CYANOCOBALAMIN 1,000 MCG TABLET (FP) PO SCH (10:45)
[2022-04-17] MEDS: PRENATAL VITAMINS W/ FOLIC ACID TABLET (FP) PO SCH (10:45)
[2022-04-17] MEDS: hydrOXYzine PAMOATE 25 MG CAPSULE (FP) PO PRN ×2 (10:46→21:14)
[2022-04-17] MEDS: COLLOIDAL OATMEAL 1 BAR EACH TP PRN (13:19)
[2022-04-17] MEDS: LIDOCAINE 5% TOPICAL PATCH TP SCH (13:19)
[2022-04-17] MEDS: NICOTINE 10 MG CARTRIDGE (INHALER) IH PRN (21:12)
[2022-04-17] MEDS: THIAMINE HCL 100 MG TABLET (FP) PO SCH (21:14)
[2022-04-17] MEDS: NICOTINE POLACRILEX 4 MG GUM BUC PRN (21:17)
[2022-04-17] MEDS: LIDOCAINE PATCH REMOVAL MC SCH (21:41)
[2022-04-17] MEDS: SUVOREXANT 5 MG TABLET PO PRN (22:50)
[2022-04-18] MEDS: CYANOCOBALAMIN 1,000 MCG TABLET (FP) PO SCH (10:15)
[2022-04-18] MEDS: FERROUS SO4 325 MG TABLET (FP) PO SCH (10:15)
[2022-04-18] MEDS: PANTOPRAZOLE 40 MG TABLET PO SCH ×2 (10:15→21:10)
[2022-04-18] MEDS: PRENATAL VITAMINS W/ FOLIC ACID TABLET (FP) PO SCH (10:15)
[2022-04-18] MEDS: NICOTINE 21 MG/24 HOURS TOPICAL PATCH TD SCH (11:28)
[2022-04-18] MEDS: LIDOCAINE 5% TOPICAL PATCH TP SCH (11:28)
[2022-04-18] MEDS: hydrOXYzine PAMOATE 25 MG CAPSULE (FP) PO PRN (21:10)
[2022-04-18] MEDS: THIAMINE HCL 100 MG TABLET (FP) PO SCH (21:10)
[2022-04-18] MEDS: LIDOCAINE PATCH REMOVAL MC SCH (21:10)
[2022-04-18] MEDS: SUVOREXANT 5 MG TABLET PO PRN (21:12)
[2022-04-18] MEDS: NICOTINE POLACRILEX 4 MG GUM BUC PRN (21:13)
[2022-04-19] MEDS: LIDOCAINE 5% TOPICAL PATCH TP SCH (10:12)
[2022-04-19] MEDS: PANTOPRAZOLE 40 MG TABLET PO SCH ×2 (10:12→21:41)
[2022-04-19] MEDS: PRENATAL VITAMINS W/ FOLIC ACID TABLET (FP) PO SCH (10:12)
[2022-04-19] MEDS: FERROUS SO4 325 MG TABLET (FP) PO SCH (10:12)
[2022-04-19] MEDS: NICOTINE 21 MG/24 HOURS TOPICAL PATCH TD SCH (10:13)
[2022-04-19] MEDS: CYANOCOBALAMIN 1,000 MCG TABLET (FP) PO SCH (10:14)
[2022-04-19] MEDS: hydrOXYzine PAMOATE 25 MG CAPSULE (FP) PO PRN (21:41)
[2022-04-19] MEDS: SUVOREXANT 5 MG TABLET PO PRN (21:41)
[2022-04-19] MEDS: LIDOCAINE PATCH REMOVAL MC SCH (21:42)
[2022-04-19] MEDS: THIAMINE HCL 100 MG TABLET (FP) PO SCH (21:42)
[2022-04-20] MEDS: FERROUS SO4 325 MG TABLET (FP) PO SCH (10:46)
[2022-04-20] MEDS: PANTOPRAZOLE 40 MG TABLET PO SCH ×2 (10:46→21:14)
[2022-04-20] MEDS: LIDOCAINE 5% TOPICAL PATCH TP SCH (10:46)
[2022-04-20] MEDS: PRENATAL VITAMINS W/ FOLIC ACID TABLET (FP) PO SCH (10:46)
[2022-04-20] MEDS: CYANOCOBALAMIN 1,000 MCG TABLET (FP) PO SCH (10:47)
[2022-04-20] MEDS: NICOTINE 21 MG/24 HOURS TOPICAL PATCH TD SCH (10:47)
[2022-04-20] MEDS: NICOTINE 10 MG CARTRIDGE (INHALER) IH PRN (10:47)
[2022-04-20] MEDS: THIAMINE HCL 100 MG TABLET (FP) PO SCH (21:14)
[2022-04-20] MEDS: LIDOCAINE PATCH REMOVAL MC SCH (21:14)
[2022-04-20] MEDS: SUVOREXANT 10 MG TABLET PO PRN (21:15)
[2022-04-20] MEDS ORDERED: SUVOREXANT 5 MG TABLET PO PRN (22:00)
[2022-04-21] MEDS: PANTOPRAZOLE 40 MG TABLET PO SCH ×2 (10:34→21:23)
[2022-04-21] MEDS: PRENATAL VITAMINS W/ FOLIC ACID TABLET (FP) PO SCH (10:34)
[2022-04-21] MEDS: FERROUS SO4 325 MG TABLET (FP) PO SCH (10:34)
[2022-04-21] MEDS: CYANOCOBALAMIN 1,000 MCG TABLET (FP) PO SCH (10:36)
[2022-04-21] MEDS: NICOTINE POLACRILEX 4 MG GUM BUC PRN (10:54)
[2022-04-21] MEDS: LIDOCAINE 5% TOPICAL PATCH TP SCH (10:54)
[2022-04-21] MEDS: NICOTINE 21 MG/24 HOURS TOPICAL PATCH TD SCH (10:54)
[2022-04-21] MEDS: THIAMINE HCL 100 MG TABLET (FP) PO SCH (21:23)
[2022-04-21] MEDS: SUVOREXANT 10 MG TABLET PO PRN (21:23)
[2022-04-21] MEDS: LIDOCAINE PATCH REMOVAL MC SCH (21:23)
[2022-04-22] MEDS: FERROUS SO4 325 MG TABLET (FP) PO SCH (10:27)
[2022-04-22] MEDS: CYANOCOBALAMIN 1,000 MCG TABLET (FP) PO SCH (10:27)
[2022-04-22] MEDS: PRENATAL VITAMINS W/ FOLIC ACID TABLET (FP) PO SCH (10:27)
[2022-04-22] MEDS: PANTOPRAZOLE 40 MG TABLET PO SCH ×2 (10:27→21:33)
[2022-04-22] MEDS: NICOTINE 21 MG/24 HOURS TOPICAL PATCH TD SCH (10:28)
[2022-04-22] MEDS: LIDOCAINE 5% TOPICAL PATCH TP SCH (10:29)
[2022-04-22] MEDS: NICOTINE 10 MG CARTRIDGE (INHALER) IH PRN (10:29)
[2022-04-22] MEDS: NICOTINE POLACRILEX 4 MG GUM BUC PRN (19:28)
[2022-04-22] MEDS: THIAMINE HCL 100 MG TABLET (FP) PO SCH (21:33)
[2022-04-22] MEDS: SUVOREXANT 15 MG TABLET PO PRN (21:33)
[2022-04-22] MEDS: LIDOCAINE PATCH REMOVAL MC SCH (21:34)
[2022-04-22] MEDS ORDERED: SUVOREXANT 10 MG TABLET PO PRN (22:00)
[2022-04-23] MEDS: NICOTINE 21 MG/24 HOURS TOPICAL PATCH TD SCH (10:31)
[2022-04-23] MEDS: CYANOCOBALAMIN 1,000 MCG TABLET (FP) PO SCH (10:31)
[2022-04-23] MEDS: PRENATAL VITAMINS W/ FOLIC ACID TABLET (FP) PO SCH (10:31)
[2022-04-23] MEDS: PANTOPRAZOLE 40 MG TABLET PO SCH ×2 (10:31→21:37)
[2022-04-23] MEDS: FERROUS SO4 325 MG TABLET (FP) PO SCH (10:31)
[2022-04-23] MEDS: NICOTINE 10 MG CARTRIDGE (INHALER) IH PRN (10:32)
[2022-04-23] MEDS: LIDOCAINE 5% TOPICAL PATCH TP SCH (10:32)
[2022-04-23] MEDS: SUVOREXANT 15 MG TABLET PO PRN (21:37)
[2022-04-23] MEDS: THIAMINE HCL 100 MG TABLET (FP) PO SCH (21:37)
[2022-04-23] MEDS: LIDOCAINE PATCH REMOVAL MC SCH (21:38)
[2022-04-24] MEDS: FERROUS SO4 325 MG TABLET (FP) PO SCH (11:01)
[2022-04-24] MEDS: PANTOPRAZOLE 40 MG TABLET PO SCH ×2 (11:01→21:35)
[2022-04-24] MEDS: PRENATAL VITAMINS W/ FOLIC ACID TABLET (FP) PO SCH (11:01)
[2022-04-24] MEDS: NICOTINE 21 MG/24 HOURS TOPICAL PATCH TD SCH (11:02)
[2022-04-24] MEDS: CYANOCOBALAMIN 1,000 MCG TABLET (FP) PO SCH (11:02)
[2022-04-24] MEDS: LIDOCAINE 5% TOPICAL PATCH TP SCH (11:02)
[2022-04-24] MEDS: NICOTINE POLACRILEX 4 MG GUM BUC PRN (13:16)
[2022-04-24] MEDS: hydrOXYzine PAMOATE 25 MG CAPSULE (FP) PO PRN (21:35)
[2022-04-24] MEDS: THIAMINE HCL 100 MG TABLET (FP) PO SCH (21:35)
[2022-04-24] MEDS: LIDOCAINE PATCH REMOVAL MC SCH (21:35)
[2022-04-25] MEDS: NICOTINE 21 MG/24 HOURS TOPICAL PATCH TD SCH (10:11)
[2022-04-25] MEDS: PRENATAL VITAMINS W/ FOLIC ACID TABLET (FP) PO SCH (10:11)
[2022-04-25] MEDS: FERROUS SO4 325 MG TABLET (FP) PO SCH (10:11)
[2022-04-25] MEDS: hydrOXYzine PAMOATE 25 MG CAPSULE (FP) PO PRN ×2 (10:11→20:45)
[2022-04-25] MEDS: PANTOPRAZOLE 40 MG TABLET PO SCH ×2 (10:11→21:52)
[2022-04-25] MEDS: LIDOCAINE 5% TOPICAL PATCH TP SCH (10:12)
[2022-04-25] MEDS: CYANOCOBALAMIN 1,000 MCG TABLET (FP) PO SCH (10:12)
[2022-04-25] MEDS: COLLOIDAL OATMEAL 1 BAR EACH TP PRN (20:44)
[2022-04-25] MEDS: QUEtiapine FUMARATE 100 MG TABLET (FP) PO SCH (21:53)
[2022-04-25] MEDS: THIAMINE HCL 100 MG TABLET (FP) PO SCH (21:53)
[2022-04-25] MEDS: LIDOCAINE PATCH REMOVAL MC SCH (21:53)
[2022-04-25] MEDS: GABAPENTIN 100 MG CAPSULE PO SCH (21:53)
[2022-04-25] MEDS ORDERED: SUVOREXANT 15 MG TABLET PO PRN (22:00)
[2022-04-26] MEDS: GABAPENTIN 100 MG CAPSULE PO SCH ×3 (07:20→21:50)
[2022-04-26] MEDS: PANTOPRAZOLE 40 MG TABLET PO SCH ×2 (10:16→21:50)
[2022-04-26] MEDS: LIDOCAINE 5% TOPICAL PATCH TP SCH (10:17)
[2022-04-26] MEDS: FERROUS SO4 325 MG TABLET (FP) PO SCH (10:17)
[2022-04-26] MEDS: CYANOCOBALAMIN 1,000 MCG TABLET (FP) PO SCH (10:17)
[2022-04-26] MEDS: QUEtiapine FUMARATE 50 MG TABLET PO SCH (10:17)
[2022-04-26] MEDS: PRENATAL VITAMINS W/ FOLIC ACID TABLET (FP) PO SCH (10:17)
[2022-04-26] MEDS: NICOTINE 21 MG/24 HOURS TOPICAL PATCH TD SCH (10:17)
[2022-04-26] MEDS: hydrOXYzine PAMOATE 25 MG CAPSULE (FP) PO PRN ×3 (10:18→17:51)
[2022-04-26] MEDS: NICOTINE 10 MG CARTRIDGE (INHALER) IH PRN (10:19)
[2022-04-26] MEDS: NICOTINE POLACRILEX 4 MG GUM BUC PRN (10:20)
[2022-04-26] MEDS: THIAMINE HCL 100 MG TABLET (FP) PO SCH (21:50)
[2022-04-26] MEDS: QUEtiapine FUMARATE 100 MG TABLET (FP) PO SCH (21:50)
[2022-04-26] MEDS: LIDOCAINE PATCH REMOVAL MC SCH (21:51)
[2022-04-27] MEDS: GABAPENTIN 100 MG CAPSULE PO SCH (07:59)
[2022-04-27 08:14] VITALS: BP 110/67; PULSE 65; RESP 16; TEMP 98.3
[2022-04-27] MEDS: LIDOCAINE 5% TOPICAL PATCH TP SCH (09:12)
[2022-04-27] MEDS: NICOTINE 21 MG/24 HOURS TOPICAL PATCH TD SCH (09:12)
[2022-04-27] MEDS: PANTOPRAZOLE 40 MG TABLET PO SCH (09:13)
[2022-04-27] MEDS: PRENATAL VITAMINS W/ FOLIC ACID TABLET (FP) PO SCH (09:13)
[2022-04-27] MEDS: QUEtiapine FUMARATE 50 MG TABLET PO SCH (09:13)
[2022-04-27] MEDS: FERROUS SO4 325 MG TABLET (FP) PO SCH (09:13)
[2022-04-27] MEDS: CYANOCOBALAMIN 1,000 MCG TABLET (FP) PO SCH (09:14)
== END 2022-04-27 10:15 | disposition home or self-care (01) | DRG 895 ==
LOC: YASAS 18:08 → Y5N 23:37
PROVIDERS: ADMIT Allergy & Immunology; ATTEND Surgery
PROC: HZ42ZZZ Group Counseling for Substance Abuse Treatment, Cognitive-Behavioral (ICD-10-PCS; principal; 2022-04-13)
DX: F10.20 Alcohol dependence, uncomplicated (principal); F14.20 Cocaine dependence, uncomplicated; F17.210 Nicotine dependence, cigarettes, uncomplicated; F31.9 Bipolar disorder, unspecified; F25.9 Schizoaffective disorder, unspecified; F19.24 Other psychoactive substance dependence with psychoactive substance-induced mood disorder; D64.9 Anemia, unspecified; M06.9 Rheumatoid arthritis, unspecified; M54.50 Low back pain, unspecified; G89.29 Other chronic pain; Z62.810 Personal history of physical and sexual abuse in childhood; Z87.19 Personal history of other diseases of the digestive system; Z28.310 Unvaccinated for COVID-19; Z28.9 Immunization not carried out for unspecified reason
CPT/HCPCS: 36415; 80053; 81003; 85027; 86780; 87389; C9803-CS; U0003; U0005